=== PATIENT | male | born 1995 | race Caucasian/White ===

== ENCOUNTER 2023-09-22 14:03 | Emergency (ER) | payer OTHER ==
[2023-09-22 14:19] VITALS: BP 111/89; PULSE 87; RESP 16; TEMP 97.3; BMI 27.4
[2023-09-22] MEDS ORDERED: IBUPROFEN 400 MG TABLET (FP) PO ONE ×2 (15:49→15:53)
[2023-09-22] MEDS ORDERED: DIPHTH,PERTUSS(ACELL),TET 0.5 ML DISP.SYRIN IM ONE ×3 (15:49→15:59)
== END 2023-09-22 16:34 | disposition home or self-care (01) ==
LOC: JERFT 14:03
PROC: 0HQKXZZ Repair Right Lower Leg Skin, External Approach (ICD-10-PCS; principal; 2023-09-22)
PROC: 3E0234Z Introduction of Serum, Toxoid and Vaccine into Muscle, Percutaneous Approach (ICD-10-PCS; 2023-09-22)
DX: S81.811A Laceration without foreign body, right lower leg, initial encounter (principal); W27.5XXA Contact with paper-cutter, initial encounter; Y99.0 Civilian activity done for income or pay
CPT/HCPCS: 90715; 99283-25

== ENCOUNTER 2023-10-02 12:16 | Emergency (ER) | payer OTHER ==
[2023-10-02 13:37] VITALS: BP 135/84; PULSE 72; RESP 18; TEMP 97.5; BMI 27.4
== END 2023-10-02 14:15 | disposition home or self-care (01) ==
LOC: JERFT 12:16
DX: Z48.02 Encounter for removal of sutures (principal)
CPT/HCPCS: 99281-25